=== PATIENT | male | born 1955 | race Caucasian/White ===

== ENCOUNTER 2017-10-19 07:51 | Observation (INO) | payer BC ==
[2017-10-19 08:24] LABS: ABS Basophils 0 10^3/ul (0-0.2); ABS Eosinophils 0.2 10^3/ul (0-0.6); ABS Lymphocytes 1.6 10^3/ul (1.0-4.8); ABS Monocytes 0.5 10^3/ul (0-0.8); ABS Neutrophils 3.1 10^3/ul (1.5-7.7); ABS Nucleated RBC 0 10^3/ul; Eosinophil % 2.9 % (0-6); Hematocrit 46 % (42-52); Hemoglobin 15.6 g/dl (14.0-18.0); Lymphocyte % 29.7 % (25-47); Mean Corpuscular HGB Conc 34 g/dl (31-36); Mean Corpuscular Hemoglobin 31 pg (27-31); Mean Corpuscular Volume 91 fL (80-94); Mean Platelet Volume 6.8 um3 (7.4-10.4); Nucleated Red Blood Cells % 0.1; Platelet Count 191 10^3/ul (150-450); Red Blood Count 5.04 10^6/ul (4.0-5.4); Red Cell Distribution Width 14 % (10.5-15); White Blood Count 5.4 10^3/ul (3.5-10.8)
[2017-10-19 08:33] LABS: INR 0.97 (0.77-1.02)
[2017-10-19 08:42] LABS: EGFR Non-African American 70.8 (>60)
--- NOTE | 2017-10-19 08:42 | RAD ---
INDICATION: Chest pain COMPARISON: Chest x-ray April 29, 2009 TECHNIQUE: Single AP portable view of the chest was obtained. FINDINGS: Image quality is compromised due to the relative inferiority of a portable chest x-ray. The heart and mediastinum exhibit normal size and contour. The lungs are grossly clear. There is no evidence of a large pleural effusion. Visualized bones are normal for the patient's age. IMPRESSION: No radiographic evidence for acute cardiopulmonary abnormality on this portable chest x-ray.
[2017-10-19] MEDS ORDERED: Al Hydrox/Mg Hydrox/Simet LIQ* 30 ML UDC PO PRN (09:46)
[2017-10-19 10:57] LABS: Urine Appearance Clear; Urine Blood Negative (Negative); Urine Color Yellow; Urine Ketones Negative (Negative); Urine Protein Negative (Negative); Urine Specific Gravity 1.019 (1.010-1.030); Urine Urobilinogen Negative (Negative)
[2017-10-19] MEDS ORDERED: Acetaminophen TAB* 325 MG PO PRN (11:18)
[2017-10-19] MEDS: Enoxaparin(*) 40 MG/0.4 ML SYR SUBCUT SCH (11:28)
[2017-10-19] MEDS: Omeprazole CAP* 20 MG PO SCH (13:13)
[2017-10-19] MEDS: Tamsulosin CAP* 0.4 MG PO SCH ×2 (13:13→13:16)
--- NOTE | 2017-10-19 13:24 | HP ---
CC: Mariusz Agarwal MD* HISTORY AND PHYSICAL: DATE OF ADMISSION: 10/19/17 PRIMARY CARE PROVIDER: Mariusz Agarwal MD ATTENDING PHYSICIAN: Toshia Penny DO * (dictated by Eliana Villegas NP) CHIEF COMPLAINT: Left arm pain radiating up to his shoulder. HISTORY OF PRESENT ILLNESS: Mr. Deleon is a 62-year-old male with past medical history significant for GERD, BPH, stress-induced asthma, borderline hypertension and borderline hyperlipidemia who states that he had been in his usual state of health. He reports helping to paint a house on Friday and moving ladders around a lot. He reports that he is right handed. He states that this morning he developed left arm pain in his biceps that got increasingly worse and then started radiating up his arm to his shoulder. He denies any actual chest pain. He denies fevers, chills, shortness of breath, nausea, vomiting, abdominal pain, diaphoresis, dizziness, lightheadedness, or palpitations. Due to the significant amount of pain he was having in his left arm, his called EMS. EMS administered aspirin and nitroglycerin with some improvement in the patient's left arm discomfort and he was brought to the emergency room for further evaluation. While in the emergency room, the patient was found to be hypertensive with systolic blood pressures in the 140s and 150s. He had labs that were unremarkable, a troponin of 0.00, CK of 286. He had a negative urinalysis. He had an EKG showing a sinus lisette, rate of 54, no acute signs of ischemia. He had a chest x-ray showing no acute findings. Due to his risk factors, the hospitalists were asked to evaluate the patient for admission. PAST MEDICAL HISTORY: 1. GERD. 2. Borderline hypertension. 3. Borderline hyperlipidemia. 4. BPH. 5. Stressed-induced asthma. PAST SURGICAL HISTORY: None. HOME MEDICATIONS: Include: 1. Vitamin B12 of 500 mg oral daily. 2. Aspirin 81 mg oral daily. 3. Tamsulosin 0.4 mg oral daily. 4. Protonix 40 mg oral daily. 5. An inhaler for his asthma, but he is unsure of the name. He uses that as needed for shortness of breath. ALLERGIES: CODEINE. FAMILY HISTORY: The patient's mother passed at age 75 from emphysema. His father passed in his 80s from aortic abdominal aneurysm. He had a sibling who passed in his 50s from AIDS. Maternal grandfather with a history of [place] in his late 50s. A sister who recently just had a stent placed in her 60s. He denies any family history of diabetes or cancer. SOCIAL HISTORY: The patient denies tobacco or recreational drug use. He occasionally drinks alcohol. His , Gayle Deleon, will be his surrogate decision maker in the event he is unable to make decisions for himself. REVIEW OF SYSTEMS: I performed an 11-point review of systems. All the pertinent positives and negatives are mentioned in the history of present illness. The remaining review of systems are negative. PHYSICAL EXAMINATION GENERAL APPEARANCE: The patient is alert, pleasant, appears to be in no acute distress. VITAL SIGNS: Temperature 97.7, heart rate 64, respiratory rate 15, O2 sat 96% on room air, blood pressure 146/96. HEENT: Normocephalic, atraumatic. Pupils are equal and reactive to light. Extraocular movements are intact. RESPIRATORY: There is no accessory muscle use. The lungs are clear to auscultation bilaterally. CARDIOVASCULAR: Regular rate and rhythm. S1, S2 present. There are no murmurs , rubs or gallops heard. ABDOMEN: Soft, nontender, nondistended. There are bowel sounds present x4. EXTREMITIES: There is no lower extremity edema. DP and PT pulses are 2+ and symmetric. MUSCULOSKELETAL: There is no clubbing or cyanosis noted. The patient exhibits good strength in all extremities. The patient has good range of motion in his left arm. There is no tenderness to palpation in his biceps, elbow, or shoulder. The patient reports slight increase in his pain occasionally with moving off the left arm. NEUROLOGICAL: The patient is alert and oriented x4. Cranial nerves II through XII are grossly intact. PSYCHOLOGICAL: The patient is calm and cooperative. SKIN: There are no rashes or abnormalities seen. DIAGNOSTIC STUDIES/LABORATORY DATA: Sodium 141, potassium 4.2, chloride 106, CO2 of 27, BUN 21, creatinine 1.06, glucose 125, magnesium 2.0. White blood cell count 5.4, hemoglobin 15.6, hematocrit 46, platelet count 191,000. CK 286. Troponin 0.00. Urinalysis negative. EKG shows sinus lisette with a rate of 54. There are no acute signs of ischemia. This EKG is similar to previous from 04/29/09. Chest x-ray from today. Radiologist's impression: No radiographic evidence for acute cardiopulmonary abnormality on this portable chest x-ray. IMPRESSION: Mr. Deleon is a 62-year-old male with past medical history significant for gastroesophageal reflux disease, BPH, stress-induced asthma, borderline hypertension, and borderline hyperlipidemia who presented to the emergency room with complaints of left arm pain that started in his biceps and radiated to his shoulder. He will be admitted as an observation for rule out acute coronary syndrome. ASSESSMENT/PLAN: 1. Rule out acute coronary syndrome. The patient's initial troponin is 0. We will continue to trend his troponins. We will monitor him on telemetry. Due to his risk factors of borderline hyperlipidemia, borderline hypertension, family history, and his obesity and he has a EDISON score of 1, we will get a stress test on him in the morning. His last stress test by our records was in 2008. I also check fasting lipids in the morning. 2. Borderline hypertension. The patient's systolic blood pressures have been in the 140s and 150s while in the emergency room. I will continue to monitor him during his stay. If he continues to be elevated, I will start him on amlodipine. 3. Borderline hyperlipidemia. We will check fasting lipids in the morning and start statin if necessary. 4. Benign prostatic hypertrophy. The patient will be continued on his home tamsulosin. 5. Gastroesophageal reflux disease. The patient will be continued on a PPI. 6. Obesity. The patient's BMI is 28. 7. Fluids, electrolytes and nutrition: The patient will be on a heart healthy , no caffeine diet. He will be n.p.o. after midnight for stress test in the morning. 8. Code status. Full code. 9. DVT prophylaxis. He is at high risk and will be on Lovenox subcu. DISPOSITION: Observation. TIME SPENT: Time for this admission was approximately 60 minutes, greater than half of that was spent with the patient and discussing medications, past medical history, and the events leading up to his arrival today, performing a physical examination. The case has been reviewed with the attending, Dr. Penny, who agrees with the plan of care. ELIANA VILLEGAS, WOOD BARKER [id number]/[facility] #: [id number] MAN[facility] PSYCHIATRIC CENTERJeny
[2017-10-19] MEDS ORDERED: Tamsulosin CAP* 0.4 MG PO SCH (18:00)
--- NOTE | 2017-10-20 01:46 | ED ---
Zakia Obrien Simon, scribed for Tonya Pelayo MD on 10/19/17 at 0826 . HPI Chest Pain - HPI Summary HPI Summary: This patient is a 62 year old M presenting to [facility] accompanied by SHYAM with a chief complaint of left arm pain since 644; he was not awakened by pain , was already awake before onset. Pt endorses pain alleviated from NTG given by EMS from severity of 7 to 2. Pt given 324 mg ASA by EMS. PT takes ASA daily and took one prior to EMS arrival. Left arm pain radiated up to shoulder and started to get intense. Pt describes pain as sharp ache that was getting worse so he called ambulance. Pt endorses similar Sx one other time 8 or 9 years ago while driving, described as chest tightness. Pt shows elevated BP, which he endorses as usual, but not usually this high, and denies being medicated for it. PT has HLD and is not medicated for it. Pt denies pain ever radiating to chest, SOB, nausea, diaphoresis. Endorses mild TERRY. He endorses an enlarged prostate which he takes Flomax for, endorses GERD Rx'd with pantoprazole. Pt saw Dr. Reveles for HAs and given meds indomethacin to RX. Pt endorses HTN. PCP is Dr. Agarwal, who did a stress test on pt "a few years ago" . Pt has not eaten today. FHx sister with PMHx stents, Father AAA and elective surgery, grandfather with an MT in his 50's. - History of Current Complaint Chief Complaint: EDChestPainROMI Time Seen by Provider: 10/19/17 07:56 Hx Obtained From: Patient, Family/Balancer - Onset/Duration: Started Hours Ago - 644 Time of Onset: 06:45 Timing: Lasting Hours Initial Severity: Moderate - 7 Current Severity: Mild Pain Intensity: 2 Pain Scale Used: 0-10 Numeric Chest Pain Radiates: Yes Chest Pain Radiates To:: Shoulder, Arm Character: Dull/Aching, Sharp/Stabbing Aggravating Factor(s): Nothing Alleviating Factor(s): NTG 123, EMS Tx Associated Signs and Symptoms: Positive: Headaches. Negative: Chest Pain, Shortness of Breath, Diaphoresis, Nausea - Risk Factors AMI/ACS Risk Factors: Family History, Hypertension, Dyslipidemia - Allergy/Home Medications Allergies/Adverse Reactions: Allergies Allergy/AdvReac Type Severity Reaction Status Date / Time codeine Allergy Nausea Verified 10/19/17 08:05 Home Medications: Home Medications Aspirin EC TAB* [Ecotrin EC Low Dose 81 MG*] 81 mg PO DAILY 10/19/17 [History Confirmed 10/19/17] Cyanocobalamin TAB* [Vitamin B12 TAB*] 500 mcg PO DAILY 10/19/17 [History Confirmed 10/19/17] Pantoprazole TAB (NF) [Protonix TAB (NF)] 40 mg PO DAILY 10/19/17 [History Confirmed 10/19/17] Tamsulosin CAP* [Flomax CAP*] 0.4 mg PO 1800 10/19/17 [History Confirmed ] PMH/Surg Hx/FS Hx/Imm Hx Previously Healthy: No - BPH Endocrine/Hematology History: Denies: Hx Diabetes, Hx Thyroid Disease Cardiovascular History: Denies: Hx Hypertension Respiratory History: Denies: Hx Asthma, Hx Chronic Obstructive Pulmonary Disease (COPD) GI History: Reports: Hx Gastroesophageal Reflux Disease Denies: Hx Ulcer Neurological History: Reports: Hx Headaches - Surgical History Surgery Procedure, Year, and Place: INTUSSUSEPTION Infectious Disease History: No Infectious Disease History: Denies: Hx Hepatitis, Hx Human Immunodeficiency Virus (HIV), History Other Infectious Disease, Traveled Outside the [place] in Last 30 Days - Family History Known Family History: Positive: Cardiac Disease Family History: Grandfather MT age 50's, Sister PSHx stents, Father Hx AAA and PSHx elective surgery. - Social History Lives: With Family Alcohol Use: None Substance Use Type: Reports: None Smoking Status (MU): Never Smoked Tobacco Review of Systems Negative: Skin Diaphoresis Negative: Chest Pain Negative: Shortness Of Breath Negative: Vomiting, Nausea Positive: no symptoms reported Positive: Other - left arm pain radiating to shoulder Skin: Negative Positive: Headache All Other Systems Reviewed And Are Negative: Yes Physical Exam - Summary Physical Exam Summary: Appearance: Well-appearing, moderate pain distress, well-nourished Skin: Warm, color reflects adequate perfusion, dry Head: Normal Head/Face inspection, atraumatic Eyes: Conjunctiva clear ENT: Normal inspection Neck: Supple, no nodes, no JVD Respiratory: Lungs clear, normal breath sounds, no respiratory distress Cardio: RRR, No murmur, pulses normal, brisk capillary refill Abdomen: Soft, nontender Bowel sounds: Present Musculoskeletal: Strength Intact/ROM intact, no calf tenderness, no edema. Psychological: Normal Neuro: Alert, muscle tone normal, no focal deficit Triage Information Reviewed: Yes Vital Signs On Initial Exam: Initial Vitals Temp Pulse Resp BP Pulse Ox 97.7 F 61 16 154/83 98 10/19/17 07:59 10/19/17 07:59 10/19/17 07:59 10/19/17 07:59 10/19/17 07:59 Vital Signs Reviewed: Yes Diagnostics - Vital Signs Vital Signs Temp Pulse Resp BP Pulse Ox 10/19/17 07:59 97.7 F 61 16 154/83 98 - Laboratory Result Diagrams: 10/20/17 05:40 10/20/17 05:41 Lab Statement: Any lab studies that have been ordered have been reviewed, and results considered in the medical decision making process. - Radiology CXR Radiology Interpretation Completed By: Radiologist - No radiographic evidence for acute cardiopulmonary abnormality on this portable x-ray. Dr. Pelayo has reviewed this radiology report. - EKG 0802 Cardiac Rate: Bradycardia EKG Rhythm: Sinus Bradycardia - [address] Segment: Normal Ectopy: None EKG Interpretation: SB @54 BPM, nl AVIVCT, no QTc, nl axis EKG Comparison: No Significant Change - compared to 04/29/09 Chest Pain Course/Dx - Course Course Of Treatment: Pt's meds reviewed and include: Tylenol, Maalox plus, ASA, Vitamin B12, Lovenox, Protonix, Flomax. Bloodwork showed for glucose 125, Creatine Kinase 286. Troponin x 2 zero, and neg d dimer. UA obtained. CXR shows no acute abnormalities.Discussed Pt care with Dr. Penny hospitalist and she accepts pt for admission to [facility] for ACS, with arm pain relieved by NTG as possible anginal equivalent, in pt with three significant cardiac risk factors. Pt and are agreeable with this plan. - Chest Pain Differential Diagnosis/HQI/PQRI: ACS, Angina - Diagnoses Provider Diagnoses: Left upper arm pain, Anginal equivalent, Nitroglycerin-induced headache - Provider Notifications Discussed Care Of Patient With: Toshia Penny Time Discussed With Above Provider: 09:45 Instructed by Provider To: Admit As Observation - Critical Care Time Critical Care Time: 30-74 min Discharge - Sign-Out/Discharge Documenting (check all that apply): Discharge/Admit/Transfer - Admit - Discharge Plan Condition: Fair Disposition: ADMITTED TO [facility] - Billing Disposition and Condition Condition: FAIR Disposition: Admitted to [facility] The documentation as recorded by the Zakia lyman Simon accurately reflects the service I personally performed and the decisions made by Pierce woodruff Barbara J, MD.
[2017-10-20 06:30] LABS: ABS Basophils 0.1 10^3/ul (0-0.2); ABS Eosinophils 0.2 10^3/ul (0-0.6); ABS Lymphocytes 2.1 10^3/ul (1.0-4.8); ABS Monocytes 0.6 10^3/ul (0-0.8); ABS Neutrophils 3.9 10^3/ul (1.5-7.7); ABS Nucleated RBC 0 10^3/ul; Eosinophil % 2.9 % (0-6); Hematocrit 45 % (42-52); Hemoglobin 15.6 g/dl (14.0-18.0); Lymphocyte % 30.2 % (25-47); Mean Corpuscular HGB Conc 35 g/dl (31-36); Mean Corpuscular Hemoglobin 32 pg (27-31); Mean Corpuscular Volume 90 fL (80-94); Mean Platelet Volume 7.3 um3 (7.4-10.4); Nucleated Red Blood Cells % 0.1; Platelet Count 203 10^3/ul (150-450); Red Blood Count 4.94 10^6/ul (4.0-5.4); Red Cell Distribution Width 14 % (10.5-15); White Blood Count 6.8 10^3/ul (3.5-10.8)
[2017-10-20 06:46] LABS: EGFR Non-African American 80.3 (>60)
[2017-10-20] MEDS ORDERED: Omeprazole CAP* 20 MG PO SCH (07:30)
[2017-10-20] MEDS: Omeprazole CAP* 20 MG PO SCH (08:45)
[2017-10-20] MEDS: Enoxaparin(*) 40 MG/0.4 ML SYR SUBCUT SCH (08:45)
[2017-10-20] MEDS ORDERED: Cyanocobalamin TAB* 500 MCG PO SCH (09:00)
[2017-10-20] MEDS ORDERED: Tamsulosin CAP* 0.4 MG PO SCH (09:00)
[2017-10-20] MEDS ORDERED: Aspirin EC TAB* 81 MG TAB.EC PO SCH (09:00)
[2017-10-20 11:57] VITALS: BP 148/90
--- NOTE | 2017-10-20 12:11 | RAD ---
Edited for charges. INDICATION: Chest pain radiating to the LEFT arm COMPARISON: April 30, 2009 TECHNIQUE: 10.990 mCi of Tc-99m Myoview were administered IV. SPECT images of the heart were obtained. Later on the same day. Under the direction of Dr. Franco, an exercise stress test was performed. The patient achieved a peak heart rate of 138 bpm, 87 % of the age- predicted maximum. Subsequently, the patient was given an IV injection of 25.280 mCi Tc- 99m Myoview. SPECT images of the heart were obtained and a gated wall motion study was performed. FINDINGS: Gated wall motion images were obtained at stress and demonstrate wall motion to be within normal limits. The calculated left ventricular ejection fraction is 68 % at stress. Estimated LEFT ventricular end diastolic volume is 95 mL. TID 0.94. Artifact from diaphragmatic attenuation and gut activity noted. Based on review of the attenuation corrected and non corrected images the distribution of radiopharmaceutical within the myocardium on the stress and rest images is within normal limits. No suspicious fixed or reversible regions of hypoperfusion evident. IMPRESSION: 1. No evidence for stress induced myocardial ischemia or presence of an infarct. 2. Normal left ventricular wall motion and ejection fraction. ASSESSMENT: Low risk based on nuclear portion. Based on imaging criteria from ACC/AHA 2002 Guideline Update for the Management of Patients With Chronic Stable Angina Table 23. Noninvasive Risk Stratification. MTDD
--- NOTE | 2017-10-21 07:58 | DS ---
CC: Dr. Agarwal * DISCHARGE SUMMARY: DATE OF ADMISSION: 10/19/17 DATE OF DISCHARGE: 10/20/17 PRIMARY CARE PHYSICIAN: Dr. Agarwal. PRINCIPAL DISCHARGE DIAGNOSES: 1. Atypical chest pain. 2. Hypertension. SECONDARY DISCHARGE DIAGNOSES: 1. Benign prostatic hypertrophy. 2. Gastroesophageal reflux disease. HOSPITAL COURSE BY PROBLEM: This is a 62-year-old man with history of untreated hypertension who presented to the emergency department with left arm pain. 1. Atypical chest pain. Given his family history and risk factors, he was admitted under observation for an acute coronary syndrome rule out. His troponins were 0.00, 0.00, and 0.00. His EKG showed sinus bradycardia with no ST or T wave changes. He underwent a nuclear stress test on 10/20/17, which showed no evidence for stress-induced SD or presence of infarct and normal LV wall motion and ejection fraction. Based on these findings, acute coronary syndrome was ruled out and he was deemed to have had a left arm strain from moving heavy equipment prior to admission. He is instructed to follow up with his PCP within 1 to 2 weeks after discharge. He was counseled on primary prevention including exercise 4 times a week and reduction of his intake of meat products. 2. Hypertension. He is currently untreated. He is instructed to follow up with his primary care physician for a blood pressure check within the next week. 3. Benign prostatic hypertrophy. He was continued on Flomax. 4. Gastroesophageal reflux disease. He was continued on a PPI. Mr. Deleon is being discharged on 10/20/17 and instructed to follow up with his PCP. He should return to the emergency department and has been instructed to do so should he develop any recurrent pain including chest pain, palpitations, shortness of breath, lightheadedness. [id number]/[facility] #: [id number] MTDD
== END 2017-10-20 14:43 | disposition home or self-care (01) ==
LOC: ED 07:51 → MEDTELE 09:46
PROVIDERS: ADMIT Internal Medicine; ATTEND Internal Medicine
DX: R07.89 Other chest pain (principal); I10 Essential (primary) hypertension; N40.0 Benign prostatic hyperplasia without lower urinary tract symptoms; K21.9 Gastro-esophageal reflux disease without esophagitis; M79.602 Pain in left arm; R51 Headache; Z79.82 Long term (current) use of aspirin; E66.9 Obesity, unspecified; Z68.28 Body mass index [BMI] 28.0-28.9, adult
CPT/HCPCS: 36415; 71045; 78452; 80048; 80053; 80061; 80076; 81003; 82550; 82553; 83605; 83735; 83880; 84484; 85025; 85379; 85610; 93005; 93017; 99284; A9270-GY; A9502; G0378; J1650

== ENCOUNTER 2019-04-07 14:30 | Emergency (ER) | payer BC ==
[2019-04-07 14:41] VITALS: BP 146/92
--- NOTE | 2019-04-07 16:34 | UC ---
Laceration HPI - HPI Summary HPI Summary: 63-year-old male presents with complaints of laceration to the tip of his right index finger. States he accidentally cut his finger on the lid of an aluminum can about 2 hours ago. Bleeding was controlled prior to arrival with direct pressure. Reports full range of motion to the finger. Last tetanus was approximately 2 years ago. Denies any numbness or tingling. - History Of Current Complaint Chief Complaint: UCLaceration Stated Complaint: CUT ON FINGER Time Seen by Provider: 04/07/19 16:29 Hx Obtained From: Patient Pain Intensity: 2 - Allergies/Home Medications Allergies/Adverse Reactions: Allergies Allergy/AdvReac Type Severity Reaction Status Date / Time codeine Allergy Nausea Verified 04/07/19 14:41 PMH/Surg Hx/FS Hx/Imm Hx GI/ History: Gastroesophageal Reflux, Other - BPH - Surgical History Surgical History: Yes Surgery Procedure, Year, and Place: INTUSSUSEPTION - Family History Known Family History: Positive: Cardiac Disease Family History: Grandfather PA age 50's, Sister PSHx stents, Father Hx AAA and PSHx elective surgery. - Social History Occupation: Retired Lives: With Family Alcohol Use: None Substance Use Type: None Smoking Status (MU): Never Smoked Tobacco - Immunization History Most Recent Tetanus Shot: 2018 Review of Systems All Other Systems Reviewed And Are Negative: Yes Constitutional: Positive: Negative Skin: Positive: Other - See HPI Respiratory: Positive: Negative Cardiovascular: Positive: Negative Gastrointestinal: Positive: Negative Genitourinary: Positive: Negative Motor: Negative: Weakness Neurovascular: Negative: Decreased Sensation Musculoskeletal: Negative: Decreased ROM Neurological: Positive: Negative Is Patient Immunocompromised?: No Physical Exam - Summary Physical Exam Summary: GENERAL APPEARANCE: Well developed, well nourished, alert and cooperative, and appears to be in no acute distress. CARDIAC: Normal S1 and S2. No S3, S4 or murmurs. Rhythm is regular. There is no peripheral edema, cyanosis or pallor. Extremities are warm and well perfused. Capillary refill is less than 2 seconds. Peripheral pulses intact. LUNGS: Clear to auscultation without rales, rhonchi, wheezing or diminished breath sounds. ABDOMEN: Positive bowel sounds. Soft, nondistended, nontender. No guarding or rebound. No masses or hepatosplenomegally. MUSKULOSKELETAL: ROM intact to all extremities. No joint erythema or tenderness. Normal muscular development. Normal gait. EXTREMITIES: Superficial linear laceration to the pad of the distal right index finger. Bleeding controlled. SKIN: Skin normal color, texture and turgor. Triage Information Reviewed: Yes Vital Signs: Initial Vital Signs Temp 97.5 F 04/07/19 14:37 Pulse 68 04/07/19 14:37 Resp 16 04/07/19 14:37 BP 146/92 04/07/19 14:37 Pulse Ox 100 04/07/19 14:37 Vital Signs Reviewed: Yes Laceration Repair - Laceration Repair 1 Description: Linear Laceration Size After Repair: Length (cm) - 1 cm Irrigation With Pressure Irrigation Device: Yes Closure Material: Skin Adhesive, SteriStrips Laceration Course/Dx - Course/Dx Course Of Treatment: 63-year-old male presents with complaints of laceration to the tip of his right index finger. States he accidentally cut his finger on the lid of an aluminum can about 2 hours ago. Bleeding was controlled prior to arrival with direct pressure. Reports full range of motion to the finger. Last tetanus was approximately 2 years ago. Denies any numbness or tingling. Afebrile. Hypertensive otherwise vital signs stable. On exam patient was noted to have a linear superficial laceration to the pad of his distal right index finger with bleeding controlled. The wound was thoroughly irrigated by the RN prior to wound repair. The wound margins were well approximated therefore decision was made to close the wound using Steri-Strips and a skin adhesive. A clean gauze dressing was applied by the RN and a splint is applied to help protect the finger. Wound care, anticipatory guidance, and warning symptoms were reviewed with the patient. Verbalizes understanding and agrees with plan of care. - Differential Dx - Laceration/Wound Differental Diagnoses: Laceration, Tendon Laceration - Diagnosis Provider Diagnosis: Laceration of right index finger Discharge ED - Sign-Out/Discharge Documenting (check all that apply): Patient Departure All imaging exams completed and their final reports reviewed: No Studies - Discharge Plan Condition: Stable Disposition: HOME Patient Education Materials: Finger Laceration (ED) Referrals: Mariusz Agarwal MD [Primary Care Provider] - Additional Instructions: Your laceration as repaired with a combination of skin adhesive and Steri- Strips. The adhesive will slowly wear off over the next several days. Keep the adhesive dry for the next 24 hours. After 24 hours you may shower and wash your hands as usual. Do not apply any lotions or ointments to the adhesive as this may dissolve the adhesive and cause the wound to reopen. The Steri-Strips will slowly peel up from the ends over the next few days. You may trim the ends as needed but do not pull off or you may reopen the wound. Keep the wound covered with a dressing. Change this at least once a day or anytime the dressing becomes wet or soiled. Use the finger splint applied in the clinic for the next couple of days to help protect the finger. Take acetaminophen (Tylenol) or ibuprofen (Advil, Motrin) according to directions as needed for pain. Watch for signs of infection including fever greater than 100.5 F, severe pain not managed with with pain medicine, redness that spreads, swelling of the finger, pus draining from the wound, or any worsening of symptoms. Seek immediate medical attention if any of these occur. - Billing Disposition and Condition Condition: STABLE Disposition: Home
== END 2019-04-07 16:56 | disposition home or self-care (01) ==
LOC: UCEAST 14:30
DX: S61.210A Laceration without foreign body of right index finger without damage to nail, initial encounter (principal); Z88.5 Allergy status to narcotic agent; W26.8XXA Contact with other sharp object(s), not elsewhere classified, initial encounter; Y92.9 Unspecified place or not applicable
CPT/HCPCS: 12001; 99213; G0463

== ENCOUNTER 2019-06-14 18:06 | Emergency (ER) | payer BC ==
--- OUTSIDE RECORDS SUMMARY | 2019-06-14 18:12 | XMS REPORT | Continuity of Care Document ---
:1955 External Reference #:[id number] Author Name Scot Mosley M.D. (transmitted by agent of provider Adina Heath) Address [address] [place] [id number] Care Team Providers Name Role Phone Mariusz Agarwal MD - Internal Care Team Information Hook Tender [phone] Medicine Problems Active Problems Provider Date Dyspnea Shameka Hathaway MD Onset: 08/16/2014 Gastroesophageal reflux disease Shameka Hathaway MD Onset: 08/16/2014 Carpal tunnel syndrome Carol Fields MD Onset: 07/26/2015 Other headache syndrome Carol Fields MD Onset: 07/26/2015 Obstructive sleep apnea syndrome Beverly Pineda DNP, RN, WEAVING TEACHER-BC Onset: Nasal congestion Beverly Pineda DNP, DEVIN, WEAVING TEACHER-BC Onset: 10/30/2016 Essential hypertension Toshia Penny DO Onset: 10/20/2017 Chest pain Toshia Penny DO Onset: 10/20/2017 Social History Type Date Description Comments Sex Unknown Tobacco Use Start: Unknown Never Smoked Cigarettes Tobacco Use Start: Unknown Never Smoked Cigars Tobacco Use Start: Unknown Never Smoked A Pipe Smoking Status Reviewed: 04/26/19 Never Smoked A Pipe Smokeless Tobacco Never Used Smokeless Tobacco ETOH Use Drinks Alcoholic Beverages Rarely Tobacco Use Start: Unknown Patient has never smoked Recreational Drug Use Denies Drug Use Exercise Type/Frequency Exercises regularly Allergies, Adverse Reactions, Alerts Active Allergies Reaction Severity Comments Date Codeine nausea 06/09/2014 Medications Active Medications SIG Qnty Indications Ordering Provider Date Proair HFA 1 puff every 6 2units R06.02 Beverly Pineda, 08/16/2014 108(90Base) hours as needed DEVIN HALL, WEAVING TEACHER-BC mcg/Act Aerosol Tamsulosin HCL 1 by mouth Unknown 0.4mg every day Capsules Pantoprazole Sodium 1 po qd Unknown 40mg Aspir-81 1 by mouth Unknown 81mg Tablets DR every day Vitamin B-12 1 by mouth Unknown 1000mcg every day Tablets Sub Metronidazole apply twice Unknown 0.75% Cream daily Immunizations Description No Information Available Vital Signs Date Vital Result Comment 04/26/2019 9:49am Height 70 inches 5'10" Weight 198.12 lb Heart Rate 56 /min BP Systolic Sitting 140 mmHg BP Diastolic Sitting 82 mmHg Respiratory Rate 12 /min Body Temperature 96.5 F Pain Level 0 O2 % BldC Oximetry 98 % BMI (Body Mass Index) 28.4 kg/m2 04/23/2019 9:10am Height 70 inches 5'10" Weight 192.00 lb Heart Rate 64 /min BP Systolic 124 mmHg BP Diastolic 64 mmHg O2 % BldC Oximetry 99 % BMI (Body Mass Index) 27.5 kg/m2 Results Description No Information Available Procedures Description No Information Available Medical Devices Description No Information Available Encounters Description No Information Available Assessments Date Code Description Provider 04/23/2019 G47.33 Obstructive sleep apnea (adult) Beverly Pineda DNP, RN, WEAVING TEACHER- (pediatric) 04/23/2019 R06.02 Shortness of breath Beverly Pineda DNP, RN, WEAVING TEACHER- 04/23/2019 R09.81 Nasal congestion Beverly Pineda DNP, RN, WEAVING TEACHER- Plan of Treatment Future Appointment(s):06/10/2019 10:00 am - Kristen Mike NP at [facility]04/23/2019 - Beverly Pineda DNP, RN, WEAVING TEACHER- [id number] Obstructive sleep apnea (adult) (pediatric)Comments:Sleep Apnea - AHI 26.7, windy oxygen 78% HST 08/2016 wt 192# On BiPAP auto AHI 2/ hourRecommendations:Continue PAP device, Benefitting and compliant with treatment. Cleaning Wipe off mask daily (baby wipe-no scent, or warm water) Clean mask, tubing, filter, and water chamber weekly in mild no scent dish soap and water. Hang to dry. If you have any sleepiness while driving you MUST avoid operating a vehicle or machinery. If you have difficulty with your equipment, or need to replace your mask or hoses, please contact your homecare agency. A weight change of 20 pounds or more may have an effect onyour equipment ; if you are experiencing problems please call for an appointment. If you have any further questions, please call the [facility] at .R06.02 Shortness of breathNew Orders:PFTW/Spirometry Vol Pre/Post Bronchdilat Dlco Complete, Ordered: 04/23/19Follow up:1 month, after PFT I will see if Dr. Hathaway would like any other testing and let you knowRecommendations: Recommend since you know when you exert to pre treat with the inhaler to see if this makes a difference. In the event this does not help may need a different inhaler to take daily. Recommend testing due to change in symptoms (worsening) .R09.81 Nasal congestionReferral:Scot Mosley MD, OtolaryngologyRecommendations:New symptom since this summer and not a history of allergy. Recommend upper airway exam by ENT. lower turbinate inflamed. May trial Nasacort or Rhinocort 1 spray each nares a day (think nose to toes when spraying medication into nose). Functional Status Description No Information Available Mental Status Description No Information Available Referrals Refer to Reason for Referral Status Appt Date Scot Mosley MD new onset nasal congestion, no history of Scheduled allergy Onset past summer Upper airway exam [address] [place] [address] [phone]
--- OUTSIDE RECORDS SUMMARY | 2019-06-14 18:12 | XMS REPORT | Continuity of Care Document ---
:1955 External Reference #:[id number] Author Name Beverly Pineda DNP, RN, HEALTH PHYSICIST-BC (transmitted by agent of provider Abeba Escobar) Address [address], [address] [place] [phone] Care Team Providers Name Role Phone Mariusz Agarwal MD - Internal Care Team Information Air Hose Coupler [phone] Medicine Problems Active Problems Provider Date Dyspnea Shameka Hathaway MD Onset: 08/16/2014 Gastroesophageal reflux disease Shameka Hathaway MD Onset: 08/16/2014 Carpal tunnel syndrome Carol Fields MD Onset: 07/26/2015 Other headache syndrome Carol Fields MD Onset: 07/26/2015 Obstructive sleep apnea syndrome Beverly Pineda DNP, RN, HEALTH PHYSICIST-BC Onset: Nasal congestion Beverly Pineda DNP, RN, HEALTH PHYSICIST-BC Onset: 10/30/2016 Essential hypertension Toshia Penny DO Onset: 10/20/2017 Chest pain Toshia Penny DO Onset: 10/20/2017 Social History Type Date Description Comments Sex Unknown ETOH Use Drinks Alcoholic Beverages Rarely Tobacco Use Start: Unknown Patient has never smoked Recreational Drug Use Denies Drug Use Smoking Status Reviewed: 04/23/19 Patient has never smoked Exercise Type/Frequency Exercises regularly Allergies, Adverse Reactions, Alerts Active Allergies Reaction Severity Comments Date Codeine nausea 06/09/2014 Medications Active Medications SIG Qnty Indications Ordering Provider Date Proair HFA 1 puff every 6 2units R06.02 Shameka Hathaway, 08/16/2014 108(90Base) hours as needed MD mcg/Act Aerosol Tamsulosin HCL 1 by mouth every Unknown 0.4mg day Capsules Pantoprazole Sodium 1 po qd Unknown 40mg Aspir-81 1 by mouth every Unknown 81mg Tablets DR day Vitamin B-12 1 by mouth every Unknown 1000mcg day Tablets Sub Immunizations Description No Information Available Vital Signs Date Vital Result Comment 04/23/2019 9:10am Height 70 inches 5'10" Weight 192.00 lb Heart Rate 64 /min BP Systolic 124 mmHg BP Diastolic 64 mmHg O2 % BldC Oximetry 99 % BMI (Body Mass Index) 27.5 kg/m2 04/22/2018 9:31am Height 70 inches 5'10" Weight 201.12 lb Heart Rate 60 /min BP Systolic Sitting 128 mmHg Lue regular cuff BP Diastolic Sitting 86 mmHg Lue regular cuff Respiratory Rate 12 /min O2 % BldC Oximetry 98 % BMI (Body Mass Index) 28.9 kg/m2 Results Description No Information Available Procedures Description No Information Available Medical Devices Description No Information Available Encounters Description No Information Available Assessments Date Code Description Provider 04/23/2019 G47.33 Obstructive sleep apnea (adult) Beverly Pineda DNP, RN, HEALTH PHYSICIST- (pediatric) 04/23/2019 R06.02 Shortness of breath Beverly Pineda DNP, RN, HEALTH PHYSICIST- 04/23/2019 R09.81 Nasal congestion Beverly Pineda DNP, RN, HEALTH PHYSICIST- Plan of Treatment Future Appointment(s):06/10/2019 10:00 am - Kristen Mike NP at [facility]04/23/2019 - Beverly Pineda DNP, RN, HEALTH PHYSICIST- [facility]47.33 Obstructive sleep apnea (adult) (pediatric)Comments:Sleep Apnea - [...] Description No Information Available Referrals Refer to Dr Reason for Referral Status Appt Date Scot Mosley MD new onset nasal congestion, no history of Created allergy Onset past summer Upper airway exam [address] [place] [address] [phone]
--- OUTSIDE RECORDS SUMMARY | 2019-06-14 18:12 | XMS REPORT | Continuity of Care Document ---
:1955 External Reference #:[id number] Author Name Kristen Mike NP (transmitted by agent of provider Abeba Escobar) Address [address], [address] [place] [phone] Care Team Providers Name Role Phone Mariusz Agarwal MD - Internal Care Team Information Boxing Promoter Medicine Problems Active Problems Provider Date Dyspnea Shameka Hathaway MD Onset: 08/16/2014 Gastroesophageal reflux disease Shameka Hathaway MD Onset: 08/16/2014 Carpal tunnel syndrome Carol Fields MD Onset: 07/26/2015 Other headache syndrome Carol Fields MD Onset: 07/26/2015 Obstructive sleep apnea syndrome Beverly Pineda DNP, RN, HIGH DENSITY PRESS OPERATOR-BC Onset: Nasal congestion Beverly Pineda DNP, RN, HIGH DENSITY PRESS OPERATOR-BC Onset: 10/30/2016 Essential hypertension Toshia Penny DO Onset: 10/20/2017 Chest pain Toshia Penny DO Onset: 10/20/2017 Social History Type Date Description Comments Sex Unknown Tobacco Use Start: Unknown Never Smoked Cigarettes Tobacco Use Start: Unknown Never Smoked Cigars Tobacco Use Start: Unknown Never Smoked A Pipe Smoking Status Reviewed: 06/10/19 Never Smoked A Pipe Smokeless Tobacco Never Used Smokeless Tobacco ETOH Use Drinks Alcoholic Beverages Rarely Tobacco Use Start: Unknown Patient has never smoked Recreational Drug Use Denies Drug Use Exercise Type/Frequency Exercises regularly Allergies, Adverse Reactions, Alerts Active Allergies Reaction Severity Comments Date Codeine nausea 06/09/2014 Medications Active Medications SIG Qnty Indications Ordering Provider Date Flovent HFA 1 puff twice 36gm J45.909 Kristen 06/10/2019 110mcg/Act daily JEFE Mike Aerosol Proair HFA 1 puff every 6 2units R06.02 Beverly Pineda, 08/16/2014 108(90Base) hours as needed RAFAEL, RN, HIGH DENSITY PRESS OPERATOR- mcg/Act Aerosol Tamsulosin HCL 1 by mouth Unknown 0.4mg every day Capsules Pantoprazole Sodium 1 po qd Unknown 40mg Aspir-81 1 by mouth Unknown 81mg Tablets DR every day Vitamin B-12 1 by mouth Unknown 1000mcg every day Tablets Sub Metronidazole apply twice Unknown 0.75% Cream daily Immunizations Description No Information Available Vital Signs Date Vital Result Comment 06/10/2019 9:44am Height 70 inches 5'10" Weight 199.00 lb Heart Rate 67 /min BP Systolic Sitting 118 mmHg BP Diastolic Sitting 78 mmHg O2 % BldC Oximetry 98 % BMI (Body Mass Index) 28.6 kg/m2 04/26/2019 9:49am Height 70 inches 5'10" Weight 198.12 lb Heart Rate 56 /min BP Systolic Sitting 140 mmHg BP Diastolic Sitting 82 mmHg Respiratory Rate 12 /min Body Temperature 96.5 F Pain Level 0 O2 % BldC Oximetry 98 % BMI (Body Mass Index) 28.4 kg/m2 Results Description No Information Available Procedures Date Code Description Status 04/26/2019 33352 Nasal Endoscopy, Diagnostic Completed Medical Devices Description No Information Available Encounters Type Date Location Provider Dx Diagnosis Office Visit 06/10/2019 [facility] Kristen J45.909 Unspecified asthma, 10:00a [facility] uncomplicated [facility] R09.82 Postnasal drip G47.33 Obstructive sleep apnea (adult) (pediatric) Office Visit 04/26/2019 [facility], R09.82 Postnasal drip 9:45a [facility] Office Visit 04/23/2019 [facility] Beverly G47.33 Obstructive sleep 9:15a [facility] Pineda, RN, apnea (adult) [facility] HIGH DENSITY PRESS OPERATOR-BC (pediatric) R06.02 Shortness of breath R09.81 Nasal congestion Assessments Date Code Description Provider 06/10/2019 J45.909 Unspecified asthma, uncomplicated Kristen Mike NP 06/10/2019 R09.82 Postnasal drip Kristen Mike NP 06/10/2019 G47.33 Obstructive sleep apnea (adult) Kristen Mike NP (pediatric) 04/26/2019 R09.82 Postnasal drip Scot Mosley M.D. 04/23/2019 G47.33 Obstructive sleep apnea (adult) Beverly Pineda DNP, RN, (pediatric) [facility] 04/23/2019 R06.02 Shortness of breath Beverly Pineda DNP, RN, [facility] 04/23/2019 R09.81 Nasal congestion Beverly Pineda DNP, RN, [facility] Plan of Treatment Future Appointment(s):09/09/2019 9:00 am - Kirsten Mike NP at [facility]06/10/2019 - Kristen Mike NPJ45.909 Unspecified asthma, uncomplicatedNew Medication:Flovent HFA 110 mcg/Act - 1 puff twice dailyFollow up:3 gayyhhU75.82 Postnasal dripG47.33 Obstructive sleep apnea (adult) (pediatric)Recommendations:If you have difficulty with your equipment, or need to replace your mask or hoses, please contact your homecare agency. If you have any further questions, please call the [facility] at [phone] If you have any sleepiness while driving you MUST avoid operating a vehicle or machinery. If you feel tired while driving focus puller and take a nap or switch drivers. If you know you are sleepy and need to go somewhere, arrange for a ride or use public transportation. It is very important to not risk your safety or the safety of others. Functional Status Description No Information Available Mental Status Description No Information Available Referrals Refer to Dr Reason for Referral Status Appt Date Scot Mosley MD new onset nasal congestion, no history of Scheduled allergy Onset past summer Upper airway exam [address] [place] [address] [phone]
[2019-06-14 18:39] VITALS: BP 147/94
--- NOTE | 2019-06-14 19:18 | UC ---
Laceration HPI - HPI Summary HPI Summary: Patient is a 63yo male presenting with laceration of right 4th finger that occurred at 1730 tonight after he cut it with a knife on doing dishes. Patient states it bled immediately but he has gotten it to stop since getting here. Denies pain. Denies decreased range of motion. Denies numbness and tingling. Patient states he is up-to-date on his tetanus. - History Of Current Complaint Chief Complaint: UCLaceration Stated Complaint: FINGER LAC Hx Obtained From: Patient Pain Intensity: 0 - Allergies/Home Medications Allergies/Adverse Reactions: Allergies Allergy/AdvReac Type Severity Reaction Status Date / Time codeine Allergy Nausea Verified 06/14/19 18:38 PMH/Surg Hx/FS Hx/Imm Hx - Surgical History Surgical History: Yes Surgery Procedure, Year, and Place: INTUSSUSEPTION - Family History Known Family History: Positive: Cardiac Disease Family History: Grandfather [place] age 50's, Sister PSHx stents, Father Hx AAA and PSHx elective surgery. - Social History Alcohol Use: Rare Substance Use Type: None Smoking Status (MU): Never Smoked Tobacco - Immunization History Most Recent Tetanus Shot: 2018 Review of Systems All Other Systems Reviewed And Are Negative: No Constitutional: Positive: Negative Skin: Positive: Other - R 4th finger laceration Respiratory: Positive: Negative Cardiovascular: Positive: Negative Musculoskeletal: Positive: Negative Neurological: Positive: Negative Physical Exam - Summary Physical Exam Summary: Vital Signs Reviewed: Yes A+Ox3, no distress Eyes: Conjunctiva Clear ENT: Hearing grossly normal neck: supple Respiratory: Positive: No respiratory distress, No accessory muscle use Cardiovascular: skin color reflect adequate perfusion Musculoskeletal Exam: GUILLERMO x 4 without difficulty Neurological: Positive: Alert, ambulatory without difficulty Psychological: Positive: Normal Response To Family Skin: Positive: ~5mm superificial laceration noted of R 4th fingertip, skin flap well approximated, nonbleeding, nontender Vital Signs: Initial Vital Signs Temp 97.6 F 06/14/19 18:34 Pulse 69 06/14/19 18:34 Resp 16 06/14/19 18:34 BP 147/94 06/14/19 18:34 Pulse Ox 99 06/14/19 18:34 Laceration Course/Dx - Course/Dx Course Of Treatment: Patient presenting with 5mm superficial laceration of R 4th fingertip. No repair necessary. Wound was cleansed. I informed the patient that bandaging the wound would be sufficient for proper healing. Patient states he would feel more comfortable having it glued and applying dressing since he uses his fingers a lot. I applied glue and tube gauze was applied by nurse. Educated patient on s/ s of infection and instructed to return if any red flags occur. Patient voiced understanding and agreed with treatment plan. Patient UTD on tetanus so did not receive booster today. - Diagnosis Provider Diagnosis: Laceration of right ring finger Discharge ED - Sign-Out/Discharge Documenting (check all that apply): Patient Departure All imaging exams completed and their final reports reviewed: No Studies - Discharge Plan Condition: Stable Disposition: HOME Patient Education Materials: Laceration (ED) Referrals: Mariusz Agarwal MD [Primary Care Provider] - If Needed Additional Instructions: Your laceration was cleaned and glue was applied. Keep the area clean and dry. Do not pick the glue off. It will fall off on its own within a week. Monitor the area for the next several days. Return if you notice any redness, warmth, pain, or drainage from the area. - Billing Disposition and Condition Condition: STABLE Disposition: Home
== END 2019-06-14 19:38 | disposition home or self-care (01) ==
LOC: UCEAST 18:06
DX: S61.214A Laceration without foreign body of right ring finger without damage to nail, initial encounter (principal); W26.0XXA Contact with knife, initial encounter; Y92.9 Unspecified place or not applicable; Z88.5 Allergy status to narcotic agent
CPT/HCPCS: 12001; 99211; G0463